=== PATIENT | male | born 1955 | race Hispanic/Latino ===

== ENCOUNTER 2021-04-28 08:54 | Observation (INO) | payer OTHER ==
[2021-04-24 13:36] LABS: BASOPHILS % (AUTO) 0.5 % (0.0-5.0); EOSINOPHILS % (AUTO) 4.7 % (0.0-8.0); HEMATOCRIT 46.6 % (42-54); LYMPHOCYTES % (AUTO) 28.7 % (21.0-51.0); MEAN CORPUSCULAR HEMOGLOBIN 30.6 pg (27.0-33.0); MEAN CORPUSCULAR HGB CONC 33.7 g/dL (32.0-36.0); MEAN CORPUSCULAR VOLUME 90.8 fL (79-99); PLATELET COUNT (AUTO) 165 K/uL (130-400); RED BLOOD CELL COUNT(AUTO) 5.13 MIL/uL (4.50-6.20); RED CELL DISTRIBUTION WIDTH 11.9 % (11.0-15.5); WHITE BLOOD COUNT (AUTO) 7.5 K/uL (4.8-10.8)
[2021-04-24 13:48] LABS: INR 1.1 (0.85-1.15); PROTHROMBIN TIME 11.9 SEC (9.6-11.6)
[2021-04-24 13:50] LABS: PARTIAL THROMBOPLASTIN TIME 28.2 SEC (26.3-35.5)
[2021-04-27 11:17] VITALS: BP 140/82
[~2021-04-28] VITALS: Ht 172.7 cm; Wt 102.7 kg
[2021-04-28] VITALS (22 sets, daily range): BP systolic 95–149; BP diastolic 50–85
[2021-04-28] MEDS: CEFAZOLIN SODIUM 1 GM VIAL IVP SCH ×3 (06:00→18:17)
[~2021-04-28 08:54] MED LIST: AEC81 PO; AMLO-257 PO; ATOR40TA71 PO; CELE100 PO; DUTA0.5C37 PO; FAMO40TA7 PO; GABA-529 PO; ROPI0.5T7 PO; ROPI1TAB13 PO; TAMS-1 PO; TRAM50TA4 PO; TRANEXAMIC ACID 3,000 MG in 0.9% NACL 250ML 250 ML TP SCH
[2021-04-28] MEDS: LACTATED RINGERS 1000ML 1,000 ML IV SCH ×2 (09:13→15:37)
[2021-04-28] MEDS ORDERED: MIDAZOLAM HCL 1 MG/ML 2ML VIAL ONE ×2 (12:29→13:02)
[2021-04-28] MEDS ORDERED: PROPOFOL 10 MG/ML 20ML VIAL IV ONE ×3 (12:47→13:14)
[2021-04-28] MEDS ORDERED: OXYCODONE HCL 5 MG TAB PO PRN (13:00)
[2021-04-28] MEDS ORDERED: MORPHINE 4 MG SYG IVP PRN (13:00)
[2021-04-28] MEDS: 0.9%NACL 1000ML 1,000 ML IV SCH (13:00)
[2021-04-28] MEDS ORDERED: ONDANSETRON 4MG INJ IVP PRN (13:00)
[2021-04-28] MEDS: ACETAMINOPHEN 500 MG TABLET PO SCH ×2 (13:00→21:16)
[2021-04-28] MEDS ORDERED: HYDROCODONE/ACETAMINOPHEN 5/325 MG TAB PO PRN (13:00)
[2021-04-28] MEDS ORDERED: ROPINIROLE HCL 0.25 MG TABLET PO PRN (13:00)
[2021-04-28] MEDS ORDERED: TRANEXAMIC ACID 1000MG/10ML ONE (13:25)
[2021-04-28] MEDS ORDERED: FENTANYL CITRATE PF 50 MCG/1 ML 2ML VIAL ONE (15:15)
[2021-04-28] MEDS ORDERED: ROPIVICAINE 250MG+KETOROLAC 15MG+EPINEPHRINE 0.3+CLONIDINE 80 IV PRN ×5 (16:00)
[2021-04-28] MEDS: TRAMADOL HCL 50 MG TABLET PO SCH ×2 (18:17→23:36)
[2021-04-28] MEDS: GABAPENTIN 100 MG CAPSULE PO SCH (18:17)
[2021-04-28] MEDS ORDERED: GABAPENTIN 100 MG CAPSULE PO SCH (21:00)
[2021-04-28] MEDS: CELECOXIB 100 MG CAP PO SCH (21:00)
[2021-04-28] MEDS ORDERED: DUTASTERIDE 0.5 MG PO SCH (21:00)
[2021-04-28] MEDS ORDERED: TAMSULOSIN HCL 0.4 MG CAP.ER.24H PO SCH (21:00)
[2021-04-28] MEDS: ASPIRIN 81 MG EC TAB PO SCH (21:16)
[2021-04-29] MEDS: 0.9%NACL 1000ML 1,000 ML IV SCH ×2 (01:00→09:00)
[2021-04-29] MEDS: CEFAZOLIN SODIUM 1 GM VIAL IVP SCH (02:45)
[2021-04-29 04:06] VITALS: BP 103/61
[2021-04-29 04:25] LABS: HEMATOCRIT 33.7 % (42-54); MEAN CORPUSCULAR HEMOGLOBIN 30.4 pg (27.0-33.0); MEAN CORPUSCULAR HGB CONC 33.8 g/dL (32.0-36.0); MEAN CORPUSCULAR VOLUME 89.9 fL (79-99); RED BLOOD CELL COUNT(AUTO) 3.75 MIL/uL (4.50-6.20); RED CELL DISTRIBUTION WIDTH 11.9 % (11.0-15.5); WHITE BLOOD COUNT (AUTO) 8.2 K/uL (4.8-10.8)
[2021-04-29 04:36] LABS: POTASSIUM 3.7 mmol/L (3.5-5.1)
[2021-04-29] MEDS: ACETAMINOPHEN 500 MG TABLET PO SCH ×2 (05:01→11:05)
[2021-04-29 07:30] VITALS: BP 119/72
[2021-04-29] MEDS ORDERED: ROPIVICAINE 250MG+KETOROLAC 15MG+EPINEPHRINE 0.3+CLONIDINE 80 IV PRN ×5 (08:00)
[2021-04-29] MEDS: ASPIRIN 81 MG EC TAB PO SCH (08:34)
[2021-04-29] MEDS: GABAPENTIN 100 MG CAPSULE PO SCH ×2 (08:34→17:00)
[2021-04-29] MEDS: TRAMADOL HCL 50 MG TABLET PO SCH ×3 (08:35→17:18)
[2021-04-29] MEDS ORDERED: AMLODIPINE 5 MG TAB PO SCH (09:00)
[2021-04-29] MEDS: CELECOXIB 100 MG CAP PO SCH (09:00)
[2021-04-29] MEDS ORDERED: POLYETHYLENE GLYCOL 3350 17 GM POWD.PACK PO SCH (09:00)
[2021-04-29] MEDS ORDERED: FAMOTIDINE 20MG TAB PO SCH (09:00)
[2021-04-29 11:01] VITALS: BP 127/87
[2021-04-29] MEDS ORDERED: ROPINIROLE HCL 1 MG TABLET PO SCH (12:00)
[2021-04-29 16:00] VITALS: BP 125/72
[2021-05-01] MEDS ORDERED: BISACODYL 10 MG SUPP.RECT RC PRN (13:00)
== END 2021-04-29 18:55 | disposition home or self-care (01) ==
LOC: DAH 08:54 → DAHIP 08:55 → 4AH 16:08
PROVIDERS: ADMIT Orthopaedic Surgery; ATTEND Orthopaedic Surgery
DX: M17.11 Unilateral primary osteoarthritis, right knee (principal); Z20.822 Contact with and (suspected) exposure to COVID-19; I10 Essential (primary) hypertension; E78.00 Pure hypercholesterolemia, unspecified; E78.5 Hyperlipidemia, unspecified; K21.9 Gastro-esophageal reflux disease without esophagitis; Z79.899 Other long term (current) drug therapy
CPT/HCPCS: 27447; S2900; 36415; 64447; 73700; 76942; 80048; 85025; 85027; 85610; 85730; 87635; 87641; 93005; 96374; 96376; 97039; C9803; G0378; J0690; J2250; J2704; J3010; J3490; J7040; J7050; J7120